=== PATIENT | male | born 1970 | race Caucasian/White ===

== ENCOUNTER 2020-07-12 11:28 | Emergency (ER) | payer OTHER, SELFPAY ==
--- NOTE | ~2020-07-12 | CT_ITS ---
EXAMINATION: CT abdomen pelvis w con EXAM DATE: 07/12/2020 14:22 INDICATION: stone vs hernia as cause of pain. Hematuria 2 days ago with LLQ pressure. TECHNIQUE: Spiral CT of the abdomen and pelvis was performed following intravenous injection of 100 m L Omnipaque 350. Axial, coronal and sagittal images were reviewed. The dose-length product (DLP) fo r this examination was 292.98 mGy-cm. The exposure was tailored according to patient size (auto mA e xposure control), and iterative reconstruction (ASIR) was used as additional dose reduction technique . There is no prior study for comparison. FINDINGS: The liver, spleen, adrenal glands and pancreas are unremarkable. Gallbladder is unremarkab le. No biliary obstruction. Portal and splenic veins are patent. Kidneys enhance symmetrically. T here is no hydronephrosis. The prostate is unremarkable. Mild diffuse bladder wall thickening, cou ld indicate acute or chronic cystitis. There is no retroperitoneal or pelvic lymphadenopathy. Ther e is small right inguinal fat-containing hernia with some surrounding thickening of its fascial plane . There are no findings to suggest appendicitis. There is mild sigmoid colonic diverticulosis. There i s no adjacent inflammatory change to suggest diverticulitis. The stomach and small bowel are unremark able. There is expected amount of colonic stool. No free intraperitoneal gas. The heart is trinidad l in size. There are no pericardial or pleural effusions. The lung bases are unremarkable. There a re no osteoblastic or osteolytic lesions identified. IMPRESSION: 1. Mild diffuse bladder wall thickening, probably acute or chronic cystitis. 2. Small right inguinal fat-containing hernia, with thickened appearing surrounding fascial plane. 3. Mild sigmoid diverticulosis. Reviewed, dictated and finalized at location B. [facility] [employer] IMPRESSION: 1. Mild diffuse bladder wall thickening, probably acute or chronic cystitis. 2. Small right inguinal fat-containing hernia, with thickened appearing surrou nding fascial plane. 3. Mild sigmoid diverticulosis.
[2020-07-12 11:30] VITALS: BP 156/105; PULSE 78; RESP 20; TEMP 36.9; O2SAT 99
--- NOTE | 2020-07-12 11:59 | ED.GENADULT ---
HPI - General Adult General Chief complaint: Abdominal Pain Stated complaint: hernia Time Seen by Provider: 07/12/20 11:50 Source: patient Mode of arrival: ambulatory Limitations: no limitations History of Present Illness HPI narrative: Patient comes in stating he has had moderately severe pain in his right groin. This has been ongoing for three days and has been a sharp stabbing pain at times. This has increased and decreased in severity. He has not taken anything at home for this except ibuprofen. He has also notices some minimal blood in his urine and comes in because of this. He denies fever and chills. Radiation: non-radiation Severity: moderate Severity scale (1-10): 6 Quality: stabbing Pain Consistency: constant Relieving factors: none Exacerbating factors: none Associated symptoms: denies other symptoms Treatments prior to arrival: NSAID Related Data Allergies Allergy/AdvReac Type Severity Reaction Status Date / Time Fish Containing Products AdvReac Hives Verified 07/12/20 12:07 ketchup AdvReac Hives Verified 07/12/20 12:07 lactase [From Dairy Aid] AdvReac Hives Verified 07/12/20 12:07 milk AdvReac Hives Verified 07/12/20 12:07 red dye AdvReac Hives Verified 07/12/20 12:07 shrimp AdvReac Hives Verified 07/12/20 12:07 Review of Systems Constitutional: Constitutional: Reports no additional constitutional complaints Eyes: Eyes: Reports no additional eye complaints ENT: Reports system reviewed and no additional complaints, except as documented Cardiovascular: Cardiovascular: Reports no additional cardiovascular complaints Respiratory: Respiratory: Reports no additional respiratory complaints Gastrointestinal: Gastrointestinal: Reports no additional gastrointestinal complaints Genitourinary: Genitourinary: Reports no additional male genitourinary complaints Musculoskeletal: Musculoskeletal: Reports no additional musculoskeletal complaints Integumentary/Breasts: Skin/Breast: Reports system reviewed and no additional complaints, except as docu Neurologic: Reports system reviewed and no additional complaints, except as documented Psychiatric: Psychiatric: Reports no additional psychiatric complaints Endocrine: Endocrine: Reports no additional endocrine complaints Hematologic/Lymphatic: Hematologic/Lymphatic: Reports no additional hematologic/lymphatic complaints Allergic/Immunologic: Allergic/Immunologic: Reports no additional allergic/immunologic complaints PMFSH Past Medical History Medical History (Updated 07/13/20 @ 00:00 by Background Daemon) Rash and nonspecific skin eruption Surgical History Surgical History (Updated 07/12/20 @ 12:58 by Leonardo Foss MD) No significant past surgical history Family History Family History (Updated 07/13/20 @ 05:43 by Leonardo Foss MD) Mother Hypertension Father Hypertension Exam Const: General: no acute distress HENMT: Head: normal to inspection Ears: external ears normal and TM's normal bilaterally General nose exam: Normal external nose present Face and sinus: normal facial exam Mouth: Yes moist mucous membranes Throat: posterior oropharynx normal Eyes: Conjunctivae: conjunctivae normal Neck: Neck: normal visual inspection Chest: Chest palpation & inspection: normal inspection of the chest Resp: Effort & Inspection: normal respiratory effort Auscultation: clear to auscultation bilaterally Cardio: Rate: regular rate Rhythm: regular rhythm GI: GI Palp: Yes Soft to palpation (nontender) : Male General Exam: Yes normal external exam Other: he has an obvious hernia on the right, but genitals are normal adult male Skin: General skin exam: normal color Neuro: General: patient oriented x3 and moves all extremities Extrem: General: normal to inspection Psych: Appearance: grossly normal Mental Status: mental status grossly normal Thought content: Yes Normal thought content present Course Course Emergency Course: Labs
[2020-07-12 12:17] LABS: Basophils Absolute Auto 0.06 K/mm3 (0.00-0.10); Basophils Percent Auto 0.7 % (0.0-1.0); Eosinophils Absolute Auto 0.13 K/mm3 (0.02-0.50); Eosinophils Percent Auto 1.4 % (1.0-6.0); Hemoglobin 13.9 g/dL (14.0-18.0); Immature Granulocyte Absolute 0.08 K/mm3 (0.00-0.00); Immature Granulocyte Percent A 0.9 % (0.0-0.0); Lymphocytes Percent Auto 19.8 % (18.0-42.0); Mean Corpuscular HGB Conc 33.1 g/dL (32.0-36.0); Mean Corpuscular Hemoglobin 28.3 pg (27.0-31.0); Mean Corpuscular Volume 85.5 fL (78.0-102.0); Monocytes Absolute Auto 0.42 K/mm3 (0.10-0.90); Monocytes Percent Auto 4.6 % (2.0-11.0); Neutrophils Absolute Auto 6.6 K/mm3 (1.7-7.2); Neutrophils Percent Auto 72.6 % (50.0-70.0); Platelet Count Result 331 K/mm3 (150-420); Red Blood Count 4.91 M/mm3 (4.70-6.10); Red Cell Distribution Width 13.2 % (11.6-14.4); White Blood Count 9.1 K/mm3 (4.8-10.8)
[2020-07-12 12:22] LABS: Add Urine Microscopic? YES; Appearance Urine Clear (Clear); Bilirubin Urine Negative (Negative); Blood Urine Negative (Negative); Color Urine Yellow (Yellow); Glucose Urine UA Negative (Negative); Ketones Urine Negative (Negative); Leukocyte Esterase Ur Trace (Negative); Nitrate Urine Negative (Negative); Protein Urine Negative (Negative); Specific Grav Ur 1.025 (1.010-1.020); Urobilinogen Urine 0.2 mg/dL (0.2-1.0); pH Urine 6.5 (5.0-8.0)
[2020-07-12] MEDS: KETOROLAC 30 MG/ML VIAL (*BKC) IV PUSH (12:26)
[2020-07-12 12:31] LABS: Alanine Aminotransferase 26 U/L (16-63); Albumin Level 3.4 g/dL (3.4-5.0); Alkaline Phosphatase 79 U/L (46-116); Anion Gap 7 mmol/L (8-16); Aspartate Amino Transferase 15 U/L (15-37); Bilirubin,Total 0.2 mg/dL (0.00-1.00); Blood Urea Nitrogen 12 mg/dL (7-18); Calcium 8.4 mg/dL (8.5-10.1); Carbon Dioxide 29 mmol/L (21-32); Chloride 101 mmol/L (98-108); Estimated CRCL calculation 77 ml/min; Estimated Glomerular Filt Rate > 60; Glucose 99 mg/dL (70-99); Osmolality Calculated 283 mOsm/kg (285-295); Potassium 4.5 mmol/L (3.5-5.1); Sodium 137 mmol/L (136-145); Total Protein 6.9 g/dL (6.4-8.2)
[2020-07-12 12:34] LABS: Lactic Acid Reflex 1.4 mmol/L (0.4-2.0)
[2020-07-12 12:43] LABS: Bacteria Urine 2+ /hpf; RBC Urine 0-2 /hpf (0-2); Squamous Epithelial Cell Urine Rare /hpf (Few)
--- NOTE | 2020-07-12 13:00 | PC.NURSE ---
Report to MAEVE Ashraf
--- NOTE | 2020-07-12 14:37 | PC.NURSE ---
REPORT PROVIDED TO ONCOMING RN WHITNEY Vilchis
[2020-07-12] MEDS: AZITHROMYCIN 250 MG TABLET 1000 MG PO (15:15)
[2020-07-12] MEDS: cefTRIAXone 1 GM VIAL IM (15:15)
[2020-07-12 15:16] VITALS: BP 120/78; PULSE 88; RESP 18; TEMP 36.4; O2SAT 98
== END 2020-07-12 15:17 | disposition home or self-care (01) ==
PROVIDERS: Emergency Provider Emergency Medicine
DX: N39.0 Urinary tract infection, site not specified (principal); K57.30 Diverticulosis of large intestine without perforation or abscess without bleeding; K40.90 Unilateral inguinal hernia, without obstruction or gangrene, not specified as recurrent
CPT/HCPCS: 36415; 74177; 80053; 81001; 83605; 85025; 87086; 96372; 96374; 99283; 99284; A9270; J0696; J1885; Q9967

== ENCOUNTER 2020-07-21 11:03 | Outpatient (CLI) | payer OTHER, SELFPAY ==
[2020-07-21 12:29] LABS: Cholesterol 209 mg/dL (0-200); HDL Direct 75 mg/dL (40-60); LDL Cholesterol Calculated 116 mg/dL (<130); Triglycerides 89 mg/dL (0-150)
[2020-07-21 12:33] LABS: Thyroid Stimulating Hormone Reflex 2.91 u/IU/mL (0.36-3.74)
== END 2020-07-21 11:04 | disposition home or self-care (01) ==
LOC: CHSLAB 11:05
PROVIDERS: PCP Family Medicine; Visit Provider Family Medicine
DX: R03.0 Elevated blood-pressure reading, without diagnosis of hypertension (principal)
CPT/HCPCS: 36415; 80061; 84443

== ENCOUNTER → 2020-08-13 02:23 | Outpatient (CLI) | payer OTHER, SELFPAY ==
[2020-08-13 20:22] LABS: SARS-CoV-2 RNA PCR Negative
== END ==
PROVIDERS: PCP Family Medicine; Visit Provider Surgery
DX: Z01.812 Encounter for preprocedural laboratory examination (principal); Z20.822 Contact with and (suspected) exposure to COVID-19
CPT/HCPCS: C9803; U0003; U0005

== ENCOUNTER 2020-08-15 09:41 | Outpatient (CLI) | payer OTHER, SELFPAY | END 2020-08-15 09:42 | disposition home or self-care (01) | PROVIDERS: PCP Family Medicine; Visit Provider Surgery | DX: K40.90 Unilateral inguinal hernia, without obstruction or gangrene, not specified as recurrent (principal); Z01.818 Encounter for other preprocedural examination | CPT/HCPCS: 36415; 86850; 86900; 86901 ==

== ENCOUNTER 2020-08-16 01:41 | Day surgery (SDC) | payer OTHER, SELFPAY ==
[2020-08-10 14:07] VITALS: BMI 25.8
--- NOTE | 2020-08-15 11:23 | WPDANESEPPF ---
Anes - Initial Pre Proc Eval Procedure: Operation Date: 08/16/20 11:00 Proposed Procedures p Laparoscopic Right Inguinal Hernia Repair With Mesh, Davinci Assisted - Harshil Davis DO Date/Time: 08/15/20 11:23 Surgeon: Harshil Davis DO Pre Op Diagnosis: Right Inguinal Hernia Patient Data Age: 50 Gender: M Height: 1.78 m Weight: 81.65 kg Allergies Allergy/AdvReac Type Severity Reaction Status Date / Time Fish Containing Products AdvReac Hives Verified 08/10/20 14:10 ketchup AdvReac Hives Verified 08/10/20 14:10 lactase [From Dairy Aid] AdvReac Hives Verified 08/10/20 14:10 milk AdvReac Hives Verified 07/26/20 10:45 red dye AdvReac Hives Verified 08/10/20 14:10 shrimp AdvReac Hives Verified 08/10/20 14:10 Home Medications Medication Instructions Recorded Confirmed Type methylprednisolone [Medrol (Ede)] See Rx Instructions PO PER PKG DIR 08/10/20 08/10/20 History PRN Patient hx anesthesia problems: none Family hx anesthesia problems: none PMFSH Past Medical History Medical History Asthma Eczema Elevated blood-pressure reading without diagnosis of hypertension Nicotine addiction Rash and nonspecific skin eruption Right inguinal hernia UTI (urinary tract infection), uncomplicated Surgical History Surgical History No significant past surgical history Family History Family History Mother Hypertension Father Hypertension Grandparent Hypertension Social History Social History Smoking packs per day: 0.5 Smoking cigarettes per day: 10.0 Years smoked: 30 Smoking pack-years: 15.00 Smoking status: Current every day smoker Tobacco type: cigarettes Alcohol intake: never Substance use: never Substance use type: does not use Living arrangements: alone 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 Questions were solicited and answers provided to the satisfaction of the patient/family/POA.
[2020-08-16] VITALS (7 sets, daily range): BP systolic 135–177; BP diastolic 71–102; PULSE 62–79; RESP 12–18; TEMP 36.3–36.4; O2SAT 100
[2020-08-16] MEDS: LACTATED RINGERS 1,000 ML 30 ML IV CONT ×2 (09:32→12:34)
[2020-08-16] MEDS: KETOROLAC 15 MG/ML VIAL (*BKC) IV PUSH (09:43)
[2020-08-16] MEDS: ACETAMINOPHEN 500 MG TABLET 1000 MG PO (09:43)
--- NOTE | 2020-08-16 10:01 | WPDHPUPDATE1 ---
History and Physical Update Update Date/Time: 08/16/20 10:01 History and Physical has been reviewed, including an updated exam of the patient. There are NO changes in the patient's condition. Risks, benefits, and alternatives have been discussed and questions answered. Patient agrees to proceed with procedure.
[2020-08-16] MEDS: ceFAZolin 2 GM/D5W 50 ML 2 GM/50 ML BAG IVPB (10:52)
[2020-08-16] MEDS: BUPIVACAINE/EPINEPHRINE 0.5% 30 ML VIAL INFILTRATE (11:32)
--- NOTE | 2020-08-16 12:24 | PM.PROC ---
Procedure Note - Detailed Date of procedure: 08/16/20 Pre-op diagnosis: Right Inguinal Hernia Post-op diagnosis: same (Indirect right inguinal hernia) Procedure performed: Laparoscopic right inguinal hernia repair with Progrip mesh, da Sam assisted Description of procedure: Procedure as well as risks, benefits, and alternatives were discussed with the patient. Written consent was obtained and placed in chart prior to procedure. Patient was brought back to surgical suite. He was placed supine on operating table. Time-out was done to confirm patient and procedure. He was then intubated by Anesthesia Department. His abdomen was prepped and draped in sterile fashion using chlorhexidine prep. 0.5% bupivacaine with epinephrine was infiltrated at each location for incision. A 12 millimeter transverse incision was made just superior to the umbilicus using a 15 blade scalpel. Blunt dissection was carried out down to the linea alba. A vertical incision was made at the linea alba using a 15 blade scalpel. The peritoneum was then bluntly entered. A 12 millimeter trocar was inserted and carbon dioxide insufflation was used to create a pneumoperitoneum. A camera was inserted and the abdominal cavity was inspected. The patient was placed in slight Trendelenburg position. An 8 millimeter incision was made on the right lateral abdomen and an 8 millimeter trocar was inserted under direct visualization. Another 8 millimeter incision was made in the left lateral abdomen and an 8 millimeter trocar was inserted under direct visualization. The robotic arms were brought up to the patient's bedside and secured to the ports. The camera and instruments were inserted. I then moved over to the robotic console and took control of the camera and instruments. After careful inspection of the abdominal cavity, I began scoring the peritoneum along the right lower quadrant using scissors with electrocautery. The preperitoneal plane was entered and this was carefully dissected caudally along the inferior epigastric vessels. Careful dissection with scissors with electrocautery and blunt dissection was used to continue this dissection. I dissected far enough laterally to allow for mesh placement, and also dissected medially to identify the pubic arch and Garry's ligament. The hernia sac was identified and carefully dissected posteriorly. The cord contents were also identified and the peritoneum was carefully dissected far enough posteriorly to allow for mesh placement. Once an adequate pocket was created, I then placed the mesh within the preperitoneal pocket and carefully unfolded it. The mesh was centered on the hernia defect with adequate overlap circumferentially. The inferior edge of the mesh was inspected to ensure that it was far enough away from the peritoneal edge. The mesh appeared in proper position overlying the entire myopectineal orifice. The peritoneum was then closed over the mesh using a 3-0 V-lock running absorbable suture. The robotic instruments were removed. The robotic arms were disengaged from the ports and moved away from the bedside. The patient was flattened out in bed, the ports were removed under direct visualization, and the pneumoperitoneum was released. The fascia of the umbilical incision was approximated using an 0 Vicryl [id number] suture. The skin of the incisions was approximated using 4-0 Monocryl subcuticular suture, and Exofin glue was applied on top. The patient was awakened from anesthesia, extubated, and transferred to recovery. Implants: Progrip Mesh 10cm x 15cm Anesthesia: GETA and local (0.5% bupivicaine with epi) Surgeon: Harshil Davis DO Estimated blood loss (mL): 5 Drains: No Packing: No Pathology: none sent Complications: No immediate complications Condition: stable Disposition: same day Findings: This is a 50-year-old man who presents with a right inguinal bulge over the past year. He initially had minimal sympto
[2020-08-16] MEDS: fentaNYL CITRATE INJ (*CRX) 100 MCG/2 ML VIAL 25 MCG IV PUSH ×4 (12:45→13:05)
--- NOTE | 2020-08-16 14:07 | SUR.PHASEII ---
Vitals stable. Patient is unhooked from monitors and getting dressed. Patient is just waiting for his ride.
== END 2020-08-16 15:02 | disposition home or self-care (01) ==
PROVIDERS: PCP Family Medicine; Visit Provider Surgery
PROC: 8E0Y4CZ Robotic Assisted Procedure of Lower Extremity, Percutaneous Endoscopic Approach (ICD-10-PCS; CPT 49650; principal; 2020-08-16 11:00)
DX: K40.90 Unilateral inguinal hernia, without obstruction or gangrene, not specified as recurrent (principal); J45.909 Unspecified asthma, uncomplicated; F17.210 Nicotine dependence, cigarettes, uncomplicated
CPT/HCPCS: 49650; S2900; A9270; C1781; J0690; J1100; J1885; J2250; J2405; J2704; J2710; J3010; J7030; J7120